=== PATIENT | female | born 1995 | race African-American/Black ===

== ENCOUNTER 2024-01-13 09:01 | Emergency (ER) | payer OTHER ==
[~2024-01-13] VITALS: Ht 177.8 cm; Wt 96.0 kg
[2024-01-13 09:22] VITALS: O2SAT 100
[2024-01-13] MEDS ORDERED: FAMO-135 MT (09:51)
[2024-01-13] MEDS ORDERED: P50 MT (09:51)
[2024-01-13] MEDS ORDERED: DIPH25CA83 MT (09:51)
[2024-01-13] MEDS: DIPHENHYDRAMINE 25MG CAPSULE PO ONE (10:00)
[2024-01-13] MEDS: PREDNISONE 20MG TABLET PO ONE (10:00)
[2024-01-13] MEDS: FAMOTIDINE 20MG TABLET PO ONE (10:00)
[2024-01-13 10:08] VITALS: BP 139/78; PULSE 89; RESP 20; TEMP 98.3
== END 2024-01-13 10:55 | disposition home or self-care (01) ==
LOC: ER 09:01
DX: L50.9 Urticaria, unspecified (principal); R59.1 Generalized enlarged lymph nodes
CPT/HCPCS: 99284; Q0163; J7512

== ENCOUNTER 2025-09-17 20:45 | Emergency (ER) | payer MEDICAID ==
[~2025-09-17] VITALS: Ht 177.8 cm; Wt 102.4 kg
[~2025-09-17 20:45] MED LIST: DIPH25CA83 MT; FAMO-135 MT; P50 MT
[2025-09-17 20:55] VITALS: TEMP 37.7; O2SAT 99
[2025-09-17 23:54] LABS: BASOPHILS % 0.6 % (0.0-2.0); EOSINOPHILS % 0.2 % (0.0-5.0); HEMATOCRIT. 37.2 % (36.0-48.0); HEMOGLOBIN. 11.3 g/dL (12.0-16.0); LYMPHOCYTES % 20.7 % (20.0-50.0); MEAN PLATELET VOLUME 8.2 fl (7.4-10.4); MONOCYTES % 10.5 % (2.0-8.0); NEUTROPHILS % 68.0 % (40.0-76.0); PLATELET 321 x1000/uL (130-400); RED BLOOD CELL COUNT 5.25 mill/uL (4.2-5.4); RED CELL DISTRIBUTION WIDTH 14.7 % (11.6-14.6)
[2025-09-18 00:03] LABS: CREATININE 0.7 mg/dL (0.6-1.0); UREA NITROGEN BLOOD 6 mg/dL (9-23)
[2025-09-18 00:31] LABS: HCG SCREEN NEGATIVE
[2025-09-18] MEDS ORDERED: BENZ100C86 MT (00:36)
[2025-09-18] MEDS ORDERED: AMOX500T2 MT (00:36)
[2025-09-18] MEDS ORDERED: AZIT500T8 MT (00:37)
[2025-09-18 01:00] VITALS: BP 126/81; PULSE 92; RESP 17; O2SAT 99
== END 2025-09-18 01:05 | disposition home or self-care (01) ==
LOC: ER 20:45
DX: J18.9 Pneumonia, unspecified organism (principal); J45.909 Unspecified asthma, uncomplicated
CPT/HCPCS: 36415; 71045; 80048; 84703; 85025; 99284